=== PATIENT | female | born 1955 ===

== ENCOUNTER 2024-10-19 11:13 | Inpatient (IN) | payer MEDICARE ==
[~2024-10-19] VITALS: Ht 160 cm; Wt 101.2 kg
[2024-10-19 12:11] LABS: Hematocrit 46.3 % (33.0-51.0); Hemoglobin 16.1 g/dL (11.5-16.0); Mean Corpuscular HGB 29.4 pg (26.0-34.0); Mean Corpuscular HGB Conc 34.8 g/dL (31.5-36.5); Mean Corpuscular Volume 85 fL (80-100); Platelet Count 233 K/mm3 (150-400); RDW Coefficient Variation 13.5 % (11.7-14.2); RDW Standard Deviation 41.9 fL (35.1-46.3); Red Blood Cell Count 5.47 M/mm3 (3.80-5.20); White Blood Cell Count 7.61 K/mm3 (4.00-11.30)
[2024-10-19 12:16] LABS: CORONAVIRUS COVID-19 AG Negative (NEGATIVE); INFLUENZA A AG Negative (NEGATIVE); INFLUENZA B AG Negative (NEGATIVE)
[2024-10-19 12:36] LABS: BASOPHILS PERCENT MAN 0 % (0-2); EOSINOPHILS ABSOLUTE MAN 0.07 K/mm3 (0.00-0.68); EOSINOPHILS PERCENT MAN 1 % (0-6); LYMPHOCYTES ABSOLUTE MAN 2.43 K/mm3 (0.84-5.20); LYMPHOCYTES PERCENT MAN 32 % (21-46); MONOCYTES ABSOLUTE MAN 0.53 K/mm3 (0.16-1.47); MONOCYTES PERCENT MAN 7 % (4-13); NEUTROPHILS ABSOLUTE MAN 4.56 K/mm3 (1.96-9.15); SEG NEUTROPHILS PERCENT MAN 60 % (41-73); TOTAL CELLS COUNTED 100
[2024-10-19 12:42] LABS: Albumin, Blood 3.2 g/dL (3.4-5.0); Albumin/Globulin Ratio 0.6 (0.8-1.8); Bilirubin, Total 0.6 mg/dL (0.1-1.0); Bun/Creatinine Ratio 39.3 (12.0-20.0); Calcium, Blood 10.1 mg/dL (8.5-10.1); Creatinine, Blood 0.79 mg/dL (0.40-1.00); Globulin, Blood 5.8 g/dL (2.2-4.0); Potassium, Blood 4.1 mmol/L (3.5-5.5)
[2024-10-19] MEDS ORDERED: NAPR500 PO (16:08)
[2024-10-19] MEDS ORDERED: METF500 PO (16:08)
[2024-10-19] MEDS ORDERED: GABA300 PO (16:08)
[2024-10-19] MEDS ORDERED: PARO20 PO (16:08)
[2024-10-19] MEDS ORDERED: OMEP20ER PO (16:08)
[2024-10-19] MEDS ORDERED: Lisinopril-Hct1 EAC4 PO (16:09)
[2024-10-19] MEDS ORDERED: PROP10 PO (16:09)
[2024-10-19] MEDS ORDERED: OXYB5 PO (16:09)
[2024-10-19] MEDS ORDERED: Doxycycline Hyclate 100 MG in Dextrose 5% 250 ML IV ONE (18:10)
[2024-10-19] MEDS ORDERED: CefTRIAXone Sodium 1,000 MG in NS 100 ML IV ONE (18:10)
[2024-10-19] MEDS ORDERED: Ondansetron HCl 2 MG / ML 2ML Vial IV PRN (19:30)
[2024-10-19] MEDS ORDERED: FLU VACC TS2024-25(6MOS UP)/PF 45 MCG/0.5 ML SYRINGE IM ONE (19:30)
[2024-10-19] MEDS ORDERED: NS 1,000 ML IV SCH (20:00)
[2024-10-19] MEDS ORDERED: Azithromycin 500 MG in NS 250 ML IV SCH (21:00)
[2024-10-19] MEDS ORDERED: oxyBUTYnin chloride 5 MG TAB PO SCH (21:00)
[2024-10-19] MEDS ORDERED: Lactobacil 2-S.Thermo-Bifido 1 1 Cap PO SCH (21:00)
[2024-10-19] MEDS ORDERED: Gabapentin 300 MG Cap PO SCH (21:00)
[2024-10-20 01:29] VITALS: BP 151/86
[2024-10-20 03:48] VITALS: BP 139/79
[2024-10-20 05:46] LABS: Hematocrit 40.3 % (33.0-51.0); Hemoglobin 13.8 g/dL (11.5-16.0); Mean Corpuscular HGB 29.2 pg (26.0-34.0); Mean Corpuscular HGB Conc 34.2 g/dL (31.5-36.5); Mean Corpuscular Volume 85 fL (80-100); Mean Platelet Volume 11.2 fL (9.1-12.4); Platelet Count 210 K/mm3 (150-400); RDW Coefficient Variation 13.2 % (11.7-14.2); RDW Standard Deviation 41.5 fL (35.1-46.3); Red Blood Cell Count 4.73 M/mm3 (3.80-5.20); White Blood Cell Count 8.11 K/mm3 (4.00-11.30)
[2024-10-20] MEDS ORDERED: Omeprazole 20 MG CapCR PO SCH (06:00)
[2024-10-20 06:04] LABS: Bun/Creatinine Ratio 35.1 (12.0-20.0); Calcium, Blood 8.9 mg/dL (8.5-10.1); Creatinine, Blood 0.66 mg/dL (0.40-1.00); Potassium, Blood 3.8 mmol/L (3.5-5.5)
[2024-10-20 06:10] LABS: Adenovirus Not Detected (NOT DETECT); Coronavirus 229E Not Detected (NOT DETECT); Coronavirus HKU1 Not Detected (NOT DETECT); Coronavirus NL63 Not Detected (NOT DETECT); Coronavirus OC43 Not Detected (NOT DETECT)
[2024-10-20 06:11] LABS: Bordetella pertussis Not Detected (NOT DETECT); Chlamydophila pneumoniae Not Detected (NOT DETECT); Human Metapneumovirus Not Detected (NOT DETECT); Human Rhinovirus/Enterovirus Not Detected (NOT DETECT); Influenza A/2009-H1 Not Detected (NOT DETECT); Influenza A/H1 Not Detected (NOT DETECT); Influenza A/H3 Not Detected (NOT DETECT); Influenza B Not Detected (NOT DETECT); Mycoplasma pneumoniae Not Detected (NOT DETECT); Parainfluenza Virus 1 Not Detected (NOT DETECT); Parainfluenza Virus 2 Not Detected (NOT DETECT); Parainfluenza Virus 3 Not Detected (NOT DETECT); Parainfluenza Virus 4 Not Detected (NOT DETECT); Respiratory Syncytial Virus Not Detected (NOT DETECT); SARS-Cov-2 (COVID-19), BioFire Not Detected (NOT DETECT)
--- NOTE | 2024-10-20 06:19 | NUR ---
SHIFT SUMMARY NO CHANGES IN ASSESSMENT NOTED FROM INITIAL ASSESSMENT.OXYGEN AT 2L ALL NIGHT.PT SLEEPING,EASILY AROUSABLE.PT DENIES PAIN,DENIES NEEDS AT THIS TIME.WILL CONTINUE TO MONITOR.
[2024-10-20] MEDS ORDERED: Insulin Human Lispro 100 Units/ML 3ML Syringe SC SCH ×2 (07:30→11:30)
[2024-10-20 07:47] VITALS: BP 130/72
[2024-10-20] MEDS ORDERED: Lisinopril 20 MG Tab PO SCH (09:00)
[2024-10-20] MEDS ORDERED: Oseltamivir Phosphate 75 MG Cap PO SCH (09:00)
[2024-10-20] MEDS ORDERED: Enoxaparin 40 MG/0.4 ML SYR SC SCH (09:00)
[2024-10-20] MEDS ORDERED: PARoxetine HCl 20 MG Tab PO SCH (09:00)
[2024-10-20] MEDS ORDERED: Insulin Regular 100 UNIT/ML 10ML Vial SC SCH (12:00)
--- NOTE | 2024-10-20 12:04 | NUR ---
ASSUMED CARE OF PT AT 1155. REPORT WAS GIVEN PRIOR. PT CURRENTLY RESTING IN BED WITH CALL LIGHT IN REACH. AOX4 WILL CONTINUE TO MONITOR.
--- NOTE | 2024-10-20 16:29 | NUR ---
NO ACUTE CHANGES AT THIS TIME. PT HAS SPENT MOST OF THE DAY RESTING IN BED. PT IS A ONE PERSON ASSIST TO RESTROOM. CURRENTLY ON 2L NC. CALL LIGHT WITHIN REACH WILL CONTINUE TO MONITOR.
[2024-10-20 16:44] VITALS: BP 122/58
[2024-10-20 21:00] VITALS: BP 118/49
[2024-10-20] MEDS ORDERED: CefTRIAXone Sodium 1,000 MG in NS 100 ML IV SCH (21:00)
[2024-10-21 02:58] VITALS: BP 101/41
--- NOTE | 2024-10-21 05:34 | NUR ---
No acute changes. On 2L NC t/o the night and cont. O2 monitoring. She has IQRA and a signed refusal of CPAP form in the chart. No major desaturation events, she did occasionally desat down to 86% for a minute or so while alseep before returning to >95%. She slept well t/o the night, no c/o of pain or discomfort. AOx4, 1 SBA to the BR for line management.
[2024-10-21 05:49] LABS: BASOPHILS ABSOLUTE AUTO 0.02 K/mm3 (0.00-0.23); BASOPHILS PERCENT AUTO 0 % (0-2); EOSINOPHILS ABSOLUTE AUTO 0.08 K/mm3 (0.00-0.68); EOSINOPHILS PERCENT AUTO 1 % (0-6); Hematocrit 39.1 % (33.0-51.0); Hemoglobin 13.5 g/dL (11.5-16.0); IMMATURE GRAN ABSOLUTE AUTO 0.08 K/mm3 (0.00-0.10); IMMATURE GRAN PERCENT AUTO 1 % (0-1); LYMPHOCYTES ABSOLUTE AUTO 2.13 K/mm3 (0.84-5.20); LYMPHOCYTES PERCENT AUTO 26 % (21-46); MONOCYTES ABSOLUTE AUTO 0.83 K/mm3 (0.16-1.47); MONOCYTES PERCENT AUTO 10 % (4-13); Mean Corpuscular HGB 29.8 pg (26.0-34.0); Mean Corpuscular HGB Conc 34.5 g/dL (31.5-36.5); Mean Corpuscular Volume 86 fL (80-100); Mean Platelet Volume 10.6 fL (9.1-12.4); NEUTROPHILS ABSOLUTE AUTO 5.11 K/mm3 (1.96-9.15); NEUTROPHILS PERCENT AUTO 62 % (41-73); Platelet Count 233 K/mm3 (150-400); RDW Coefficient Variation 13.5 % (11.7-14.2); RDW Standard Deviation 42.8 fL (35.1-46.3); Red Blood Cell Count 4.53 M/mm3 (3.80-5.20); White Blood Cell Count 8.25 K/mm3 (4.00-11.30)
[2024-10-21 07:29] VITALS: BP 106/40
[2024-10-21 07:34] VITALS: BP 129/61
[2024-10-21 08:30] LABS: Albumin, Blood 2.8 g/dL (3.4-5.0); Albumin/Globulin Ratio 0.6 (0.8-1.8); Bilirubin, Total 0.6 mg/dL (0.1-1.0); Bun/Creatinine Ratio 20.7 (12.0-20.0); Calcium, Blood 9.1 mg/dL (8.5-10.1); Creatinine, Blood 0.68 mg/dL (0.40-1.00); Globulin, Blood 4.6 g/dL (2.2-4.0); Potassium, Blood 4.1 mmol/L (3.5-5.5); Total Protein, Blood 7.4 g/dL (6.4-8.2)
--- NOTE | 2024-10-21 09:01 | NUR ---
PATIENT OXYGEN DC'D PER DR GUZMAN, PATIENT MAINTAINING OXYGEN LEVEL ABOVE 90% AT SLEEP AND 95% WHEN AWAKE.
[2024-10-21] MEDS ORDERED: OSEL75CA PO (09:20)
== END 2024-10-21 10:34 | disposition home or self-care (01) | DRG 193 ==
LOC: ER 11:13 → MEDS 11:14 → ERHOLD 11:14 → MEDS 10-20 01:16
PROVIDERS: Nurse Practitioner Acute Care; Physician Assistant; Student in an Organized Health Care Education/Training Program; ADMIT Student in an Organized Health Care Education/Training Program
DX: J10.00 Influenza due to other identified influenza virus with unspecified type of pneumonia (principal); J96.01 Acute respiratory failure with hypoxia; Z68.41 Body mass index [BMI] 40.0-44.9, adult; K21.9 Gastro-esophageal reflux disease without esophagitis; E11.9 Type 2 diabetes mellitus without complications; F32.9 Major depressive disorder, single episode, unspecified; G47.33 Obstructive sleep apnea (adult) (pediatric); E66.01 Morbid (severe) obesity due to excess calories; Z79.84 Long term (current) use of oral hypoglycemic drugs; Z79.899 Other long term (current) drug therapy
CPT/HCPCS: 0202U; 36415; 71046; 80048; 80053; 82947; 84145; 85025; 85027; 85379; 87428-QW; 93005; 93010; 94762; 96365; 99285-25; A9270; J0456; J0696; J1650; J7030; J7050; J7060